=== PATIENT | female | born 2005 | race Two or more races ===

== ENCOUNTER 2025-07-15 21:38 | Emergency (ER) | payer OTHER, SELFPAY ==
[2025-07-15 21:39] VITALS: BMI 39.4
--- NOTE | 2025-07-15 21:41 | EKG_ITS ---
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
--- NOTE | 2025-07-15 22:40 | EDNOTE_ITS ---
ED General RME/HPI General Chief complaint: Chest Pain Stated complaint: CHEST PAIN Time Seen by Provider: 07/15/25 22:07 Arrival date/time: 07/15/25 21:38 RME / HPI RME / HPI narrative: Yoli is a 20 y/o female with no pertinent PMHx comes in for an evaluation of chest pain located in mid sternum, has occurred before, rated 5 out of 10, occurs at rest. Patient reports she has had the symptoms before, and has been similar to acid reflux. She also says that she does get anxious however is not anxious at this time. She denies any recent dietary habit changes. She denies being on any maintenance psych medicines at this time. She denies any shortness of breath or vomiting at this time. No other complaints at this time Related Data Previous Rx's ?Medication ?Instructions ?Recorded aluminum-mag hydroxide-simethicone 10 ml PO QID PRN in digestion 1 07/16/25 200 mg-200 mg-20 mg/5 mL oral susp month #3,000 mL pantoprazole 40 mg tablet,delayed 40 mg PO QDAY 1 saundra h #30 tabs 07/16/25 release Allergies Allergy/AdvReac Type Severity Reaction Status Date / Time No Known Allergies Allergy Verified 08/14/18 13:26 Review of Systems Review of Systems Narrative Review of Systems: Constitutional: No fever, chills, fatigue, weakness, weight loss HEENT: No eye pain, vision loss, ear pain, hearing loss, dysphagia, Cardiovascular: + chest pain, no palpitations, edema, pain with walking Respiratory: No cough, shortness of breath, wheezing GI: No NVD, abdominal pain, constipation, blood in stool, loss of appetite, heartburn Extremities: No presence of pitting edema MSK: No back pain, joint pain, joint swelling Neuro: No dizziness, numbness, weakness, headaches, seizures, tremors Psych: No anxiety, depression ED Exam Narrative Physical exam: General: AAOx3, NAD, obese female HEENT: Moist mucous membranes, conjunctiva clear, EOMI, PERRLA, Cardiovascular: S1, S2, radial pulses +2 bilat, RRR, reproducible sternal pain Pulmonary: CTAB bilat no cough, no wheezing GI: No tenderness to light or deep palpitation, no guarding, rigidity, rebound tenderness or distension Extremities: No presence of trace or pitting edema in lower extremities bilaterally, dorsalis pedis pulses +2 bilaterally Neuro: AAOx3, no focal motor or sensory deficits in the UE or LE bilat Psych: Good judgement, thought and behavior Course Quality Measures none Orders Category Date Time Status EKG (ED ONLY) *Do not use* NOW Care 07/15/25 21:41 Completed EKG (ED Only) Stat Exams 07/15/25 21:41 Draft XR chest 2V Stat Exams 07/16/25 00:06 Taken CBC Stat Lab 07/16/25 00:13 Completed Comprehensive Metabolic Panel Stat Lab 07/16/25 00:13 Completed Magnesium Stat Lab 07/16/25 00:13 Completed Partial Thromboplastin Time Stat Lab 07/16/25 00:13 Completed Prothrombin Time with INR Stat Lab 07/16/25 00:13 Completed Troponin I Stat Lab 07/16/25 00:13 Completed Hyoscyamine Sulf [Levsin] Med 07/16/25 00:10 Pending 0.125 mg PO X1 ONE Ondansetron Odt [Zofran Odt] Med 07/16/25 00:08 Discontinued 4 mg PO X1 ONE Pantoprazole [Protonix] Med 07/16/25 00:08 Discontinued 40 mg PO X1 ONE mg Hyd/Al Hyd/Tony Susp [Maalox Susp] Med 07/16/25 00:08 Discontinued 30 ml PO X1 ONE Vital Signs Vital signs: Vital Signs Temperature 99.0 F 07/15/25 22:48 Pulse Rate 100 07/15/25 22:48 Respiratory Rate 18 07/15/25 22:48 Blood Pressure 134/83 H 07/15/25 22:48 Pulse Oximetry (%) 96 07/15/25 22:48 Oxygen Delivery Method Room Air 07/15/25 22:48 Discharge Plan Plan Patient Disposition: HOME (Self Care) Patient condition on transfer: Stable Prescriptions/Referrals Prescriptions/Med Rec: New pantoprazole 40 mg tablet,delayed release (DR/EC) 40 mg PO QDAY 30 Days Qty: 30 0RF Rx Instructions: Take one tablet by mouth before breakfast alum-mag hydroxide-simeth 200-200-20 mg/5 mL suspension 10 ml PO QID PRN (Reason: indigestion) 30 Days Qty: 3000 0RF Rx Instructions: Take 10 mL by mouth up to four times a day as needed Referrals: No Primary/Family,Physician [Primary Care Provider] - In 1 week Problem List Clinical Impression: Gastro-esophageal reflux Patient/Caregiver Discharge Instructions Discharge Activity: activity as tolerated Diet Instructions: AVOID spicy foods AVOID TAKING IBUPROFEN Education Materials: ED GERD (Adult) Additional Instructions: Discharge instructions Follow-up with your PCP within 1 week Take your medicines as prescribed, Maalox and Protonix Return to ED if your symptoms worsen or return Print Language: Guatemalan Stand Alone Forms: Wendi Award Info., Patient Portal Info Letter MD Attestation Attestation I, Dr. Remy, have reviewed the history, exam, and assessment of the patient. I have evaluated the patient independently and agree with the plan of care documented by the resident Dr. Townsend. All diagnostic studies were reviewed and discussed. I confirm the diagnosis as documented by the resident. I was present during the Medical Decision Making for this patient. The patient?s plan of care was created between myself and the resident and consistent with our discussion of the patient?s case. MDM Narrative MDM hospital course (for use when minimal MDM required): 0030: Evaluated patient and ordered chest pain workup 0137: Chest x-ray reviewed which shows no pulmonary edema or acute process with heart, labs within normal limits, EKG unremarkable, regular rate and rhythm. Gave patient Zofran, GI cocktail with Maalox and Protonix. Patient's symptoms had resolved and including chest pain rated at a 1 out of 10. Spoke patient in regards to chest pain likely related to gastroesophageal reflux disease and will give patient medicines outpatient and to have strict follow-up with primary care physician. Medication Administration(s) Medication Administration History Hyoscyamine (Hyoscyamine Sulf 0.125 Mg Tab.Subl) 0.125 mg PO X1 ONE Stop: 07/16/25 00:11 Discontinued Medications Al Hydrox/Mg Hydrox/Simethicone (Mg Hyd/Al Hyd/Tony (Maalox Reg) Susp 30 Ml Udc) 30 ml PO X1 ONE Stop: 07/16/25 00:09 Last Admin: 07/16/25 00:30 Dose: 30 ml Documented By: CALLIE Ondansetron HCl (Ondansetron Odt 4 Mg Tabrap) 4 mg PO X1 ONE; Protocol Stop: 07/16/25 00:09 Last Admin: 07/16/25 00:30 Dose: 4 mg Documented By: CALLIE Pantoprazole Sodium (Pantoprazole 40 Mg Tablet) 40 mg PO X1 ONE Stop: 07/16/25 00:09 Last Admin: 07/16/25 00:30 Dose: 40 mg Documented By: CALLIE
[2025-07-15 22:48] VITALS: BP 134/83; PULSE 100; RESP 18; TEMP 37.2; O2SAT 96
--- NOTE | 2025-07-16 00:06 | XR_ITS ---
Examination: PA lateral chest 2 views Technique: Upright PA lateral chest 2 views Date and time: July 16, 2025, 0007 hrs. Indications: Chest pain today. Findings: Normal heart size. The lungs are clear. The osseous structures are intact Impression: No active disease
[2025-07-16 00:24] LABS: Basophils # (Auto) 0.1 Thou/mm3 (0.0-0.2); Basophils % (Auto) 1 % (0-2.5); Eosinophils # (Auto) 0.2 Thou/mm3 (0.0-0.5); Eosinophils % (Auto) 2 % (0-10); Hematocrit 42.4 % (36.0-46.0); Hemoglobin 13.6 g/dL (12.0-16.0); Immature Granulocytes Auto 0.02 Thou/mm3 (0.00-0.00); Lymphocytes # (Auto) 2.5 Thou/mm3 (1.0-4.8); Lymphocytes % (Auto) 24 % (10-50); Mean Corpuscular HGB Conc 32.1 g/dl (31.0-37.0); Mean Corpuscular Hemoglobin 26.3 pg (25.0-35.0); Mean Corpuscular Volume 82 fL (80-100); Monocytes # (Auto) 0.7 Thou/mm3 (0.0-0.8); Monocytes % (Auto) 6 % (0-12); Neutrophils # (Auto) 6.9 Thou/mm3 (1.8-7.7); Neutrophils % (Auto) 67 % (37-80); Nucleated Red Blood Cell # 0.00 Thou/mm3 (0.00-0.00); Nucleated Red Blood Cell % 0 /100 WBC (0); Platelet Count 257 Thou/mm3 (140-440); RDW Standard Deviation 38.9 fL (36.4-46.3); Red Blood Count 5.17 Miln/mm3 (4.00-5.20); White Blood Count 10.3 Thou/mm3 (3.6-11.0)
[2025-07-16] MEDS: MG HYD/AL HYD/SIME (Maalox Reg) SUSP 30 ML UDC PO (00:30)
[2025-07-16] MEDS: PANTOPRAZOLE 40 MG TABLET PO (00:30)
[2025-07-16] MEDS: ONDANSETRON ODT 4 MG TABRAP PO (00:30)
[2025-07-16 00:41] LABS: INR 1.0 (0.9-1.3); Partial Thromboplastin Time 31.4 Seconds (22.0-36.0); Prothrombin Time 10.9 Seconds (9.0-12.2)
[2025-07-16 00:44] LABS: Alanine Aminotransferase 42 U/L (10-49); Albumin, Serum 4.7 gm/dL (3.5-5.0); Albumin/Globulin Ratio 1.7 (1.2-2.2); Alkaline Phosphatase 87 U/L (46-116); Anion Gap 10 (7-16); Aspartate Amino Transferase 29 U/L (0-34); BUN/Creatinine Ratio 9 Ratio (12-20); Bilirubin,Total 0.4 mg/dL (0.3-1.2); Blood Urea Nitrogen 7 mg/dL (9-23); Calcium 9.4 mg/dL (8.3-10.6); Calcium (Corrected) 9.4 mg/dL (8.5-10.1); Carbon Dioxide 26.4 mMol/L (20.0-31.0); Chloride 108 mMol/L (98-107); Creatinine (Component) 0.8 mg/dL (0.6-1.3); Estimated Creatinine Clearance 126.3 mL/min (>60); Globulin 2.7 gm/dL (2.3-3.5); Glucose 114 mg/dL (74-106); Magnesium 1.9 mg/dL (1.6-2.6); Osmolality,Calculated 285 (275-295); Potassium 3.9 mMol/L (3.4-5.1); Sodium 144 mMol/L (136-145); Total Protein 7.4 gm/dL (5.7-8.2); Troponin I < 0.002 ng/mL (0.0-0.045); eGFR > 60 See Note
[2025-07-16 01:31] VITALS: BP 130/78; PULSE 91; RESP 18; TEMP 37.2; O2SAT 96
== END 2025-07-16 01:46 | disposition home or self-care (01) ==
PROVIDERS: Emergency Provider Emergency Medicine
DX: K21.9 Gastro-esophageal reflux disease without esophagitis (principal)
CPT/HCPCS: 36415; 71046; 80053; 80307; 83735; 83880; 84484; 85025; 85610; 85730; 93005; 99283; Q0162; A9270